=== PATIENT | male | born 1950 | race Caucasian/White ===

== ENCOUNTER 2022-04-26 14:49 | Observation (INO) ==
--- NOTE | 2022-04-26 15:27 | Emergency Department Note ---
Impression & Plan Complicated urinary tract infection, Bilateral chronic intracranial subdural hematoma ED Provider Note HISTORY OF PRESENT ILLNESS: Patient is a 71-year-old male presenting with leg heaviness and a left-sided headache. Patient reports that he woke up this morning and had a fever of 101. He states that his bilateral lower extremities "feel heavy." He denies any recent falls or head injuries. He had a follow-up a month ago and was diagnosed with an intracranial bleed. Patient reports he is on Plavix currently. Denies any chest pain or shortness of breath. He has had a nonproductive cough since waking up this morning. Denies any recent sick contact exposures. Denies any rashes. Denies any abdominal pain or vomiting, but does report some nausea since waking up this morning. He reports he did not take anything for his fever this morning prior to arrival. ROS: as above PHYSICAL EXAM: Constitutional: Patient appears in no acute distress. HENT: Head: Normocephalic and atraumatic. Eyes: EOMI, PERRL Mouth/Throat: Mucous membranes moist. Neck: Trachea midline. Neck supple. Full range of motion of the neck without meningismus. Cardiovascular: RRR, No murmurs, rubs or gallops. Intact distal pulses. Pulmonary/Chest: No respiratory distress. Breath sounds clear and equal bilaterally. No wheezes or rales. Abdominal: BS +. Abdomen soft, no tenderness, rebound or guarding. Back: No midline spinal tenderness, no paraspinal tenderness, no CVA tenderness. Musculoskeletal: No edema, tenderness or deformity noted. Cummins catheter leg bag in place. Skin: Warm and dry. No rash, erythema, pallor or cyanosis Psychiatric: Appropriate mood and affect for situation. Neurological: Alert and keenly responsive. CN II-XII grossly intact, moving all extremities equally and fully. MDM: - Vitals signs stable. - History obtained via patient. Patient presents with leg heaviness and left- sided headache. Patient states he woke up this morning and felt like his bilateral lower extremities were heavy. He denies any fevers. Denies any recent falls or head injuries. Denies any nausea or vomiting. He has a chronic Cummins catheter in place - Chronic conditions affecting care: CAD (S/p CABG); HTN; HLD - Differential diagnoses include, but are not limited to: Intracranial bleed vs mass; stroke; seizures; electrolyte abnormality; medication side effect; UTI; pneumonia - Order placed for continuous cardiac monitoring. At this time, monitor showed rate of 85 bpm with normal sinus rhythm, per my interpretation. - External medical records reviewed. Patient was evaluated after a fall in March 2022 and required transfer given bilateral subdural hematomas. - Laboratory workup interpreted by myself showed leukocytosis (WBC 19.26); normal troponin; slight hypomagnesemia (Mg 1.6); normal procalcitonin - COVID negative - CXR negative for acute cardiopulmonary pathology, per my interpretation. - CT head wo contrast showed bilateral subdural hematomas which have decreased in size from previous imaging. - Blood cultures obtained. - UA obtained from catheter shows evidence of infection. No prior urine cultures in our system. Given 2g IV rocephin. - EKG reviewed by myself showed normal sinus rhythm. Rate 89 bpm. QTc 476. No acute ischemic changes. Appears similar to prior EKGs from March 2022 - Discussion was had with socially responsible investment adviser about patient's case and need for admission - Hospitalist consulted for admission. - Patient admitted to [facility] for further evaluation and management. ASSESSMENT AND PLAN: Diagnosis: lower extremity weakness; complicated UTI; bilateral chronic subdural hematoma Plan: admit Past Med/Surg History Medical History CAD (coronary artery disease) s/p CABG x 3 (2003) GERD (gastroesophageal reflux disease) Hyperlipidemia Hypertension Obesity Ventral hernia without obstruction or gangrene Surgical History H/O ventral hernia repair (03/13/19) Open Ventral Hernia Repair, with Mesh Dr. 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 Beliefs That Will Affect Care: None marital status: Current Living Situation: Alone current occupational status: employed and retired 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 release 24 hr omeprazole 20 mg capsule,delayed 20 mg PO QAM 02/20/19 04/26/22 release atorvastatin 10 mg tablet (Lipitor) 10 mg PO BID 02/21/19 04/26/22 losartan 100 mg tablet 100 mg PO QAM 02/21/19 04/26/22 solifenacin 10 mg tablet 10 mg PO HS 02/21/19 04/26/22 omega 3-wfr-fih-fish oil 1,000 mg 1 cap PO QAM 02/22/19 04/26/22 (120 mg-180 mg) capsule (Fish Oil) ascorbate calcium (vitamin C) 500 500 mg PO DAILY 04/28/21 04/26/22 mg tablet cholecalciferol (vitamin D3) 50 50 mcg PO DAILY 04/28/21 04/26/22 mcg (2,000 unit) capsule multivitamin 1 tab PO QAM 03/19/22 04/26/22 Previous Rx's Medication Instructions Recorded tadalafil 5 mg tablet (Cialis) 5 mg PO DAILY #90 tabs 04/28/21 Results & Data (ED) Vital Signs Vital Signs - 24 hr 04/26/22 14:58 04/26/22 15:24 04/26/22 15:39 Temperature 36.8 C Temperature Source Temporal Artery Scan Pulse Rate 91 H 90 90 Pulse Rate from SpO2 Sensor 90 Pulse Rhythm Regular Respiratory Rate 18 20 24 Respiratory Effort / Characteristics Non-Labored Spontaneous Respiratory Depth Normal Respiratory Pattern Regular Blood Pressure 107/69 Blood Pressure Mean 81 Blood Pressure Position Sitting Pulse Oximetry 93 94 92 Oxygen Delivery Method Room Air Room Air Sepsis Recent Fever Within 48 Hours No Sepsis New/Unexplained Change in Mental Status No Sepsis Action Taken by Nursing No Action Required 04/26/22 16:00 04/26/22 14:50 04/26/22 16:30 Temperature Temperature Source Pulse Rate 91 H Pulse Rate from SpO2 Sensor 91 H Pulse Rhythm Respiratory Rate 20 Respiratory Effort / Characteristics Respiratory Depth Respiratory Pattern Blood Pressure 102/63 112/65 Blood Pressure Mean 76 80 Blood Pressure Position Pulse Oximetry 90 Oxygen Delivery Method Room Air Sepsis Recent Fever Within 48 Hours Sepsis New/Unexplained Change in Mental Status Sepsis Action Taken by Nursing 04/26/22 16:30 04/26/22 17:00 04/26/22 17:00 Temperature Temperature Source Pulse Rate 90 85 Pulse Rate from SpO2 Sensor 89 86 Pulse Rhythm Respiratory Rate 24 25 H Respiratory Effort / Characteristics Respiratory Depth Respiratory Pattern Blood Pressure 110/65 Blood Pressure Mean 80 Blood Pressure Position Pulse Oximetry 91 91 Oxygen Delivery Method Sepsis Recent Fever Within 48 Hours Sepsis New/Unexplained Change in Mental Status Sepsis Action Taken by Nursing 04/26/22 17:30 Temperature Temperature Source Pulse Rate 88 Pulse Rate from SpO2 Sensor 89 Pulse Rhythm Respiratory Rate 22 Respiratory Effort / Characteristics Respiratory Depth Respiratory Pattern Blood Pressure Blood Pressure Mean Blood Pressure Position Pulse Oximetry 91 Oxygen Delivery Method Sepsis Recent Fever Within 48 Hours Sepsis New/Unexplained Change in Mental Status Sepsis Action Taken by Nursing Laboratory Data 04/26/22 15:29 04/26/22 15:29 Lab Results 04/26/22 04/26/22 04/26/22 Range/Units 15:25 15:29 15:29 WBC 19.26 H (4.8-10.8) K/ul RBC 4.20 L (4.70-6.10) M/uL Hgb 12.4 L (14.0-18.0) g/dl Hct 38.0 L (42.0-52.0) % MCV 90.5 (80.0-100.0) fL MCH 29.5 (25.0-34.0) pg MCHC 32.6 (32.0-36.0) g/dL RDW Std Deviation 46.5 H (36.4-46.3) fL RDW Coeff of Judah 14.1 (11.5-14.5) % Plt Count 192 (130-400) K/uL MPV 10.5 (9.4-12.4) fL Immature Gran % (Auto) 0.8 % Neut % (Auto) 85.2 % Lymph % (Auto) 3.3 % Burke % (Auto) 9.8 % Eos % (Auto) 0.7 % Baso % (Auto) 0.2 % Neut # (Auto) 16.41 H (1.40-6.50) K/uL Lymph # (Auto) 0.63 L (1.2-3.4) K/uL Burke # (Auto) 1.88 H (0.11-0.59) K/uL Eos # (Auto) 0.14 (0-0.50) K/uL Baso # (Auto) 0.04 (0-0.2) K/uL Immature Gran # (Auto) 0.16 (0.01-0.20) K/uL Sodium 139 (136-145) mmol/L Potassium 4.5 (3.5-5.1) mmol/L Chloride 103 (98-107) mmol/L Carbon Dioxide 29 (21-32) mmol/L Anion Gap 7 (3-11) BUN 15 (6-23) mg/dl Creatinine 0.92 (0.6-1.4) mg/dl Est Cr Clr Drug Dosing Not Reportable Est GFR ( Amer) 95.3 ml/min Est GFR (Non-Af Amer) 82.2 ml/min BUN/Creatinine Ratio 16.3 (10-20) Glucose 146 H (70-99(Fasting)) mg/dl Calcium 8.9 (8.5-10.1) mg/dl Magnesium 1.6 L (1.7-2.4) mg/dl Total Bilirubin 0.7 (0.2-1.0) mg/dl AST 12 L (13-39) U/L ALT 14 (7-52) U/L Alkaline Phosphatase 65 (34-104) U/L Troponin I High Sens 8.4 (0-20) pg/ml Total Protein 6.9 (6.0-8.3) gm/dl Albumin 3.8 (3.4-5.0) gm/dl Globulin 3.1 (2.5-4.0) gm/dl Albumin/Globulin Ratio 1.2 (0.9-2) Procalcitonin (0-0.5) ng/ml TSH (0.300-4.500) uIu/ml Urine Color Urine Appearance (Clear) Urine pH (4.5-7.5) Ur Specific [place] (1.000-1.030) Urine Protein (Negative) Urine Glucose (UA) (Negative) Urine Ketones (Negative) Urine Blood (Negative) Urine Nitrite (Negative) Urine Bilirubin (Negative) Urine Urobilinogen (Negative) Ur Leukocyte Esterase (Negative) Urine WBC (Auto) (0-5) /hpf Urine RBC (Auto) (0-4) /hpf U Hyaline Cast (Auto) (0-5) /lpf U Epithel Cells (Auto) (0-5) /lpf Urine Bacteria (Auto) (Negative) Adenovirus (PCR) Not Detected (NotDetected) B. pertussis DNA (PCR) Not Detected (NotDetected) B.parapertussis DNA PCR Not Detected (NotDetected) C. pneumoniae DNA (PCR) Not Detected (NotDetected) Coronavirus OC43 (PCR) Not Detected (NotDetected) Coronavirus HKU1 (PCR) Not Detected (NotDetected) Coronavirus 229E (PCR) Not Detected (NotDetected) SARS-CoV-2 (PCR) Not Detected (NotDetected) Coronavirus NL63 (PCR) Not Detected (NotDetected) Human Metapneumovir PCR Not Detected (NotDetected) Influenza Type A (PCR) Not Detected (NotDetected) Influenza Type B (PCR) Not Detected (NotDetected) M. pneumoniae (PCR) Not Detected (NotDetected) Parainfluenza 1 (PCR) Not Detected (NotDetected) Parainfluenza 2 (PCR) Not Detected (NotDetected) Parainfluenza 3 (PCR) Not Detected (NotDetected) Parainfluenza 4 (PCR) Not Detected (NotDetected) RSV (PCR) Not Detected (NotDetected) Entero/Rhino (PCR) Not Detected (NotDetected) 04/26/22 04/26/22 04/26/22 Range/Units 15:29 15:29 17:45 WBC (4.8-10.8) K/ul RBC (4.70-6.10) M/uL Hgb (14.0-18.0) g/dl Hct (42.0-52.0) % MCV (80.0-100.0) fL MCH (25.0-34.0) pg MCHC (32.0-36.0) g/dL RDW Std Deviation (36.4-46.3) fL RDW Coeff of Judah (11.5-14.5) % Plt Count (130-400) K/uL MPV (9.4-12.4) fL Immature Gran % (Auto) % Neut % (Auto) % Lymph % (Auto) % Burke % (Auto) % Eos % (Auto) % Baso % (Auto) % Neut # (Auto) (1.40-6.50) K/uL Lymph # (Auto) (1.2-3.4) K/uL Burke # (Auto) (0.11-0.59) K/uL Eos # (Auto) (0-0.50) K/uL Baso # (Auto) (0-0.2) K/uL Immature Gran # (Auto) (0.01-0.20) K/uL Sodium (136-145) mmol/L Potassium (3.5-5.1) mmol/L Chloride (98-107) mmol/L Carbon Dioxide (21-32) mmol/L Anion Gap (3-11) BUN (6-23) mg/dl Creatinine (0.6-1.4) mg/dl Est Cr Clr Drug Dosing Est GFR ( Amer) ml/min Est GFR (Non-Af Amer) ml/min BUN/Creatinine Ratio (10-20) Glucose (70-99(Fasting)) mg/dl Calcium (8.5-10.1) mg/dl Magnesium (1.7-2.4) mg/dl Total Bilirubin (0.2-1.0) mg/dl AST (13-39) U/L ALT (7-52) U/L Alkaline Phosphatase (34-104) U/L Troponin I High Sens (0-20) pg/ml Total Protein (6.0-8.3) gm/dl Albumin (3.4-5.0) gm/dl Globulin (2.5-4.0) gm/dl Albumin/Globulin Ratio (0.9-2) Procalcitonin 0.36 (0-0.5) ng/ml TSH 0.523 (0.300-4.500) uIu/ml Urine Color Dark Yellow Urine Appearance Turbid A (Clear) Urine pH 7.0 (4.5-7.5) Ur Specific [place] 1.022 (1.000-1.030) Urine Protein 1+ H (Negative) Urine Glucose (UA) Negative (Negative) Urine Ketones Trace H (Negative) Urine Blood 2+ H (Negative) Urine Nitrite Positive A (Negative) Urine Bilirubin Negative (Negative) Urine Urobilinogen Negative (Negative) Ur Leukocyte Esterase 3+ H (Negative) Urine WBC (Auto) >30 H (0-5) /hpf Urine RBC (Auto) 10-30 H (0-4) /hpf U Hyaline Cast (Auto) 5-10 H (0-5) /lpf U Epithel Cells (Auto) 5-10 H (0-5) /lpf Urine Bacteria (Auto) 4+ H (Negative) Adenovirus (PCR) (NotDetected) B. pertussis DNA (PCR) (NotDetected) B.parapertussis DNA PCR (NotDetected) C. pneumoniae DNA (PCR) (NotDetected) Coronavirus OC43 (PCR) (NotDetected) Coronavirus HKU1 (PCR) (NotDetected) Coronavirus 229E (PCR) (NotDetected) SARS-CoV-2 (PCR) (NotDetected) Coronavirus NL63 (PCR) (NotDetected) Human Metapneumovir PCR (NotDetected) Influenza Type A (PCR) (NotDetected) Influenza Type B (PCR) (NotDetected) M. pneumoniae (PCR) (NotDetected) Parainfluenza 1 (PCR) (NotDetected) Parainfluenza 2 (PCR) (NotDetected) Parainfluenza 3 (PCR) (NotDetected) Parainfluenza 4 (PCR) (NotDetected) RSV (PCR) (NotDetected) Entero/Rhino (PCR) (NotDetected) Administered Medications Discontinued Medications Ceftriaxone Sodium (Rocephin) 2,000 mg in 70 mls @ 140 mls/hr IV NOW STA Stop: 04/26/22 19:03 Last Admin: 04/26/22 19:18 Dose: 140 mls/hr Documented By: RDD Imaging Data Radiologist's Impression: Chest X-Ray 04/26/22 15:24 XR chest 1V portable CLINICAL HISTORY: weakness COMPARISON STUDY: Chest radiograph March 19, 2022. FINDINGS: No pneumothorax is noted. Blunting of the left costophrenic angle is likely chronic. Mild asymmetric left lung volume loss is unchanged. This may be postsurgical. There are median sternotomy wires and mediastinal surgical clips. Cardiomegaly is noted. No evidence for pulmonary edema. No definite consolidation. Hazy left basilar opacity is likely artifactual. IMPRESSION: No acute cardiopulmonary findings. No change in appearance of the chest. ACT 112: Negative or not required by law. Electronically signed by: Deven Cuellar M.D. 04/26/2022 4:[address] 04/26/22 15:24 CT OF THE HEAD WITHOUT CONTRAST CLINICAL HISTORY: weakness COMPARISON STUDY: Head CT and CTA of the head March 19, 2022. CT DOSE: 614.27 mGy.cm TECHNIQUE: Helical axial images of the head were obtained without IV contrast. Automated exposure control was utilized for the study. A dose lowering technique was utilized adhering to the principles of ALARA. FINDINGS: Moderate-sized left and small right-sided mixed attenuation subdural hematomas are noted. These have decreased in size and attenuation when compared to prior head CT of March 19, 2022 following interval bilateral craniotomies. The left subdural hematoma measures 1.7 cm in thickness. The right sided hem atoma measures 1.2 cm. Mass effect has diminished. There is mild residual sulcal effacement. There is no significant midline shift. Compression of the left lateral ventricle has diminished. The basal cisterns are patent. There is no evidence for herniation at this time. No findings to suggest acute dural sinus thrombosis or acute territorial infarct. Surgical material along the inner table of the right calvarium is noted. No acute calvarial fracture is present. IMPRESSION: Bilateral mixed attenuation subdural hematomas, decreased in size since head CT of March 19, 2022 following interval craniotomies. Left subdural hematoma moderate in size. Right hematoma small in size. Correlation with prior postoperative imaging studies would be beneficial. These may reflect recurrent acute on chronic or subacute subdural hematomas. Short-term imaging follow-up is recommended with follow-up head CT in 12 hours to ensure stability. If progressive symptoms, neurosurgical consultation is recommended. ACT 112: Negative or not required by law. Electronically signed by: Deven Cuellar M.D. 04/26/2022 4:20 PM Discharge Plan Visit Data Chief Complaint: Weakness Stated Complaint: WEAKNESS, DIZZINESS S/P BRAIN BLEED IN MARCH ED Provider: Miriam Mckoy Discharge Problem: Complicated urinary tract infection, Bilateral chronic intracranial subdural hematoma Forms Stand Alone Forms: My [facility] [employer] Prescriptions Prescriptions: No Action amlodipine [Norvasc] 5 mg tablet 5 mg PO QAM aspirin [Adult Aspirin Regimen] 81 mg tablet,delayed release (DR/EC) 81 mg PO QAM metoprolol succinate 50 mg capsule,sprinkle,ER 24hr 50 mg PO QAM omeprazole 20 mg capsule,delayed release(DR/EC) 20 mg PO QAM atorvastatin [Lipitor] 10 mg tablet 10 mg PO BID losartan 100 mg tablet 100 mg PO QAM solifenacin 10 mg tablet 10 mg PO HS ascorbate calcium (vitamin C) 500 mg tablet 500 mg PO DAILY cholecalciferol (vitamin D3) 50 mcg (2,000 unit) capsule 50 mcg PO DAILY tadalafil [Cialis] 5 mg tablet 5 mg PO DAILY Qty: 90 3RF omega 5-dni-gwn-fish oil [Fish Oil] 1,000 mg (120 mg-180 mg) Capsule 1 cap PO QAM multivitamin Tablet 1 tab PO QAM Referrals Referrals: Davie Robertson DO [Primary Care Provider] -
[2022-04-26 15:45] LABS: Basophils # (auto) 0.04 K/uL (0-0.2); Basophils % (auto) 0.2 %; Eosinophils # (auto) 0.14 K/uL (0-0.50); Eosinophils % (auto) 0.7 %; Hemoglobin 12.4 g/dl (14.0-18.0); Immature Granulocytes # (auto) 0.16 K/uL (0.01-0.20); Immature Granulocytes % (auto) 0.8 %; Lymphocytes # (auto) 0.63 K/uL (1.2-3.4); Lymphocytes % (auto) 3.3 %; Mean Corpuscular Hemoglobin 29.5 pg (25.0-34.0); Mean Corpuscular Hgb Conc 32.6 g/dL (32.0-36.0); Mean Corpuscular Volume 90.5 fL (80.0-100.0); Mean Platelet Volume 10.5 fL (9.4-12.4); Monocytes # (auto) 1.88 K/uL (0.11-0.59); Monocytes % (auto) 9.8 %; Neutrophils # (auto) 16.41 K/uL (1.40-6.50); Neutrophils % (auto) 85.2 %; Platelet Count 192 K/uL (130-400); RDW Coefficient of Variation 14.1 % (11.5-14.5); RDW Standard Deviation 46.5 fL (36.4-46.3); White Blood Count 19.26 K/ul (4.8-10.8)
--- NOTE | 2022-04-26 16:02 | XRay Report ---
XR chest 1V portable CLINICAL HISTORY: weakness COMPARISON STUDY: Chest radiograph March 19, 2022. FINDINGS: No pneumothorax is noted. Blunting of the left costophrenic angle is likely chronic. Mild a symmetric left lung volume loss is unchanged. This may be postsurgical. There are median sternotomy w ires and mediastinal surgical clips. Cardiomegaly is noted. No evidence for pulmonary edema. No defin ite consolidation. Hazy left basilar opacity is likely artifactual. IMPRESSION: No acute cardiopulmonary findings. No change in appearance of the chest. ACT 112: Negative or not required by law. Electronically signed by: Deven Cuellar M.D. 04/26/2022 4:00 PM
[2022-04-26 16:03] LABS: Alanine Aminotransferase 14 U/L (7-52); Albumin Globulin Ratio 1.2 (0.9-2); Albumin Level 3.8 gm/dl (3.4-5.0); Alkaline Phosphatase 65 U/L (34-104); Anion Gap 7 (3-11); Aspartate Aminotransferase 12 U/L (13-39); BUN Creatinine Ratio 16.3 (10-20); Bilirubin,Total 0.7 mg/dl (0.2-1.0); Blood Urea Nitrogen 15 mg/dl (6-23); Calcium 8.9 mg/dl (8.5-10.1); Carbon Dioxide 29 mmol/L (21-32); Chloride 103 mmol/L (98-107); Est GFR (African American) 95.3 ml/min; Est GFR (Non-African American) 82.2 ml/min; Globulin 3.1 gm/dl (2.5-4.0); Glucose 146 mg/dl (70-99(Fasting)); Magnesium 1.6 mg/dl (1.7-2.4); Potassium 4.5 mmol/L (3.5-5.1); Sodium 139 mmol/L (136-145); Total Protein 6.9 gm/dl (6.0-8.3)
[2022-04-26 16:09] LABS: Troponin I High Sensitivity 8.4 pg/ml (0-20)
--- NOTE | 2022-04-26 16:23 | CT Scan Report ---
CT OF THE HEAD WITHOUT CONTRAST CLINICAL HISTORY: weakness COMPARISON STUDY: Head CT and CTA of the head March 19, 2022. CT DOSE: 614.27 mGy.cm TECHNIQUE: Helical axial images of the head were obtained without IV contrast. Automated exposure con trol was utilized for the study. A dose lowering technique was utilized adhering to the principles o f ALARA. FINDINGS: Moderate-sized left and small right-sided mixed attenuation subdural hematomas are noted. T hese have decreased in size and attenuation when compared to prior head CT of March 19, 2022 followi ng interval bilateral craniotomies. The left subdural hematoma measures 1.7 cm in thickness. The righ t sided hematoma measures 1.2 cm. Mass effect has diminished. There is mild residual sulcal effacemen t. There is no significant midline shift. Compression of the left lateral ventricle has diminished. T he basal cisterns are patent. There is no evidence for herniation at this time. No findings to sugges t acute dural sinus thrombosis or acute territorial infarct. Surgical material along the inner table of the right calvarium is noted. No acute calvarial fracture is present. IMPRESSION: Bilateral mixed attenuation subdural hematomas, decreased in size since head CT of March 19, 2022 fo llowing interval craniotomies. Left subdural hematoma moderate in size. Right hematoma small in size. Correlation with prior postoperative imaging studies would be beneficial. These may reflect recurren t acute on chronic or subacute subdural hematomas. Short-term imaging follow-up is recommended with f ollow-up head CT in 12 hours to ensure stability. If progressive symptoms, neurosurgical consultation is recommended. ACT 112: Negative or not required by law. Electronically signed by: Deven Cuellar M.D. 04/26/2022 4:20 PM
[2022-04-26 16:33] LABS: Adenovirus PCR Not Detected (NotDetected); Bordetella parapertussis PCR Not Detected (NotDetected); Bordetella pertussis PCR Not Detected (NotDetected); Chlamydia pneumoniae PCR Not Detected (NotDetected); Coronavirus 229E PCR Not Detected (NotDetected); Coronavirus CoV-2 (COVID19)PCR Not Detected (NotDetected); Coronavirus HKU1 PCR Not Detected (NotDetected); Coronavirus NL63 PCR Not Detected (NotDetected); Coronavirus OC43PCR Not Detected (NotDetected); Human Metapneumovirus PCR Not Detected (NotDetected); Influenza A PCR Not Detected (NotDetected); Influenza B PCR Not Detected (NotDetected); Mycoplasma pneumoniae PCR Not Detected (NotDetected); Parainfluenza Virus 1 PCR Not Detected (NotDetected); Parainfluenza Virus 2 PCR Not Detected (NotDetected); Parainfluenza Virus 3 PCR Not Detected (NotDetected); Parainfluenza Virus 4 PCR Not Detected (NotDetected); Respiratory Syncytial VirusPCR Not Detected (NotDetected); Rhinovirus/Enterovirus PCR Not Detected (NotDetected)
[2022-04-26 18:11] LABS: Appearance Urine Turbid (Clear); Bacteria Urine Automated 4+ (Negative); Bilirubin Urine Negative (Negative); Blood Urine 2+ (Negative); Color Urine Dark Yellow; Glucose Urine UA Negative (Negative); Ketones Urine Trace (Negative); Leukocyte Esterase Urine 3+ (Negative); Nitrite Urine Positive (Negative); Protein Urine 1+ (Negative); Specific Gravity Urine 1.022 (1.000-1.030); Urobilinogen Urine Negative (Negative); WBC Urine Automated >30 /hpf (0-5)
[2022-04-26] MEDS ORDERED: cefTRIAXone SODIUM 2,000 MG/70 ML BAG IV STA (18:34)
--- NOTE | 2022-04-26 18:49 | History & Physical Report ---
Date of Service April 26, 2022 History of Present Illness Chief Complaint: Weakness Primary Care Provider: Davie RobertsonDO Burnette is a 71 year old male with a PMH significant for BL subdural hematomas due to falls diagnosed at [facility] on 03/19/22 S/P anterior and posterior bore hole placement at [facility] on 03/20/22, S/P IR embolization of the right middle meningeal artery at [facility] 03/24/22, HTN, CAD S/P CABG x 3 approximately 18 yrs ago, and acute urinary retention currently delcid catheter dependent who presented to the [facility] ED on 04/26/22 with a chief complaint of weakness. In the ED the patient was found to be afebrile, hemodynamically stable, and stable on RA. Labs were remarkable for a leukocytosis of 19 with left shift of 16, Hgb of 12.4 (down from 14 as of 03/19/22), stable platelets at 192, stable cr at 0.92, glucose of 146, ,mag of 1.6 otherwise stable electrolytes, initial high sensitivity trop of 8.6, procal of 0.36, TSH WNL, UA indicative of infection b eing nitrite positive, 3+ leukocyte esterase, >30 WBC, and 4+ bacteria, and full respiratory biofire negative. Chest xray was read as "No acute cardiopulmonary findings. No change in appearance of the chest.". CT of the head was read as "Bilateral mixed attenuation subdural hematomas, decreased in size since head CT of March 19, 2022 following interval craniotomies. Left subdural hematoma moderate in size. Right hematoma small in size. Correlation with prior postoperative imaging studies would be beneficial. These may reflect recurrent acute on chronic or subacute subdural hematomas. Short-term imaging follow-up is recommended with follow-up head CT in 12 hours to ensure stability. If progressive symptoms, neurosurgical consultation is recommended." Prior to admission the patient was given 2g IV ceftriaxone. Allergies Allergy/AdvReac Type Severity Reaction Status Date / Time No Known Allergies Allergy Verified 04/26/22 17:05 Home Medications Medication Instructions Recorded Confirmed Type amlodipine 5 mg tablet (Norvasc) 5 mg PO QAM 02/20/19 04/26/22 History aspirin 81 mg tablet,delayed 81 mg PO QAM 02/20/19 04/26/22 History release (Adult Aspirin Regimen) metoprolol succinate 50 mg capsule 50 mg PO QAM 02/20/19 04/26/22 History sprinkle, ext. release 24 hr omeprazole 20 mg capsule,delayed 20 mg PO QAM 02/20/19 04/26/22 History release atorvastatin 10 mg tablet (Lipitor) 10 mg PO BID 02/21/19 04/26/22 History losartan 100 mg tablet 100 mg PO QAM 02/21/19 04/26/22 History solifenacin 10 mg tablet 10 mg PO HS 02/21/19 04/26/22 History omega 6-epo-kms-fish oil 1,000 mg 1 cap PO QAM 02/22/19 04/26/22 History (120 mg-180 mg) capsule (Fish Oil) ascorbate calcium (vitamin C) 500 500 mg PO DAILY 04/28/21 04/26/22 History mg tablet cholecalciferol (vitamin D3) 50 50 mcg PO DAILY 04/28/21 04/26/22 History mcg (2,000 unit) capsule tadalafil 5 mg tablet (Cialis) 5 mg PO DAILY #90 tabs 04/28/21 04/26/22 Rx multivitamin 1 tab PO QAM 03/19/22 04/26/22 History Past Med/Surg History Medical History CAD (coronary artery disease) s/p CABG x 3 (2003) GERD (gastroesophageal reflux disease) Hyperlipidemia Hypertension Obesity Ventral hernia without obstruction or gangrene Surgical History H/O ventral hernia repair (03/13/19) Open Ventral Hernia Repair, with Mesh Dr. Vargas 03-13-19 H/O wisdom tooth extraction History of colonoscopy Hx of hernia repair as child S/P CABG (coronary artery bypass graft) CABG x 3 (2003) Family History Mother Diabetes Heart disease Father Kidney stones Social History Smoking Status: Former smoker Age Quit Using Tobacco: 23; Second Hand Exposure: No; Hx Alcohol Use: Yes Alcohol type: beer Hx Substance Use: No Preferred Language: [place] Communication Ability: Effective Grounds Restoration Specialist Required: No Beliefs That Will Affect Care: None marital status: Current Living Situation: Alone current occupational status: employed and retired 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 Feels Safe at Home: Yes Assistive Devices: None Results & Data Results & Data ([facility]) Vital Signs (Past 12 Hours) Vital Signs Temp Pulse Resp BP Pulse Ox O2 Del Method 04/26/22 17:30 88 22 91 04/26/22 17:00 85 25 H 91 04/26/22 17:00 110/65 04/26/22 16:30 90 24 91 04/26/22 16:30 112/65 04/26/22 14:50 Room Air 04/26/22 16:00 91 H 20 102/63 90 04/26/22 15:39 90 24 92 04/26/22 15:24 90 20 94 Room Air 04/26/22 14:58 36.8 C 91 H 18 107/69 93 Room Air PG Care Time/CCT Total # of Minutes Spent Total Time Spent with Patient: Total time spent is greater than 50% in coordination of care (as documented) at patient's floor/unit and/or counseling patient: Coding
[2022-04-26] MEDS ORDERED: MAGNESIUM SULFATE / D5W 1 GM/100 ML BAG IV ONE (19:32)
[2022-04-26] MEDS ORDERED: SODIUM CHLORIDE 0.9% 1000ML 1,000 ML IV ONE (19:33)
--- NOTE | 2022-04-26 20:18 | History & Physical Report ---
Date of Service April 26, 2022 Assessment & Plan (1) Sepsis: Plan: Secondary to complicated UTI History chronic indwelling Cummins catheter secondary to urinary retention/BPH since [facility] confinement last month/failed multiple void trials hx CAD status post CABG hypertension, BP on the lower side hyperlipidemia on statin Rx history traumatic bilateral subdural hematoma status post surgery/embolization ([facility], 03/2022) chronic anemia, new patient baseline Hyperglycemia rule out DM past tobacco abuse GMF CS, Ceftriaxone IVF Urology consult Re: Urinary retention with chronic indwelling Cummins catheter, failed multiple void trials (Patient known to [facility].) Check hemoglobin A1c DVT prophylaxis. SCDs Re: Recent subdural hematoma Full code Text document was generated using [employer] voice recognition software. It may contain grammatical or spelling errors. Kindly contact undersigned for clarification of any documentation item in question. History of Present Illness Chief Complaint: Fever, not feeling well, weakness Primary Care Provider: Davie Robertson DO, [facility] in the [place] History obtained from patient, family, and records. Medical history significant for CAD status post CABG, hypertension, hyperlipidemia, history traumatic bilateral subdural hematoma status post surgery/embolization ([facility], 03/2022), chronic anemia (baseline hemoglobin of 12 ), urinary retention secondary to BPH with indwelling Cummins catheter (since 03/2022 [facility] confinement), past tobacco abuse. Last confinement [facility] March 19 to 2022 following [facility] transfer for bilateral subdural hematomas with shift following history of recurrent falls. Patient underwent for holding and embolization. Patient subsequently discharged to [facility] rehab facility. Patient subsequently discharged home weeks ago. Cummins catheter placed during [facility] confinement with failed void trials at [facility] and [facility] rehab facility as per records. Patient discharged home indwelling Cummins catheter with instructions to follow-up with local urologist. Patient woke up not feeling well this morning. Fever of 101. Generalized weakness with transient left-sided headache symptoms. No chest pain, no SOB. Nonproductive cough symptoms. No abdominal pain, no diarrhea, no dysuria complaints. Patient brought to ER for evaluation. IV ceftriaxone administered at the ER for UTI. Medical History as above Surgical History : CABG, ventral hernia repair, dental surgery, james holing Family History : DM, heart disease Personal/Social history : Past tobacco abuse, occasional EtOH intake, lives with Allergies Allergy/AdvReac Type Severity Reaction Status Date / Time No Known Allergies Allergy Verified 04/26/22 17:05 Home Medications Medication Instructions Recorded Confirmed Type amlodipine 5 mg tablet (Norvasc) 5 mg PO QAM 02/20/19 04/26/22 History aspirin 81 mg tablet,delayed 81 mg PO QAM 02/20/19 04/26/22 History release (Adult Aspirin Regimen) metoprolol succinate 50 mg capsule 50 mg PO QAM 02/20/19 04/26/22 History sprinkle, ext. release 24 hr omeprazole 20 mg capsule,delayed 20 mg PO QAM 02/20/19 04/26/22 History release atorvastatin 10 mg tablet (Lipitor) 10 mg PO BID 02/21/19 04/26/22 History losartan 100 mg tablet 100 mg PO QAM 02/21/19 04/26/22 History solifenacin 10 mg tablet 10 mg PO HS 02/21/19 04/26/22 History omega 4-xso-eag-fish oil 1,000 mg 1 cap PO QAM 02/22/19 04/26/22 History (120 mg-180 mg) capsule (Fish Oil) ascorbate calcium (vitamin C) 500 500 mg PO DAILY 04/28/21 04/26/22 History mg tablet cholecalciferol (vitamin D3) 50 50 mcg PO DAILY 04/28/21 04/26/22 History mcg (2,000 unit) capsule tadalafil 5 mg tablet (Cialis) 5 mg PO DAILY #90 tabs 04/28/21 04/26/22 Rx multivitamin 1 tab PO QAM 03/19/22 04/26/22 History Past Med/Surg History Medical History CAD (coronary artery disease) s/p CABG x 3 (2003) GERD (gastroesophageal reflux disease) Hyperlipidemia Hypertension Obesity Ventral hernia without obstruction or gangrene Surgical History H/O ventral hernia repair (03/13/19) Open Ventral Hernia Repair, with Mesh Dr. Vargas 03-13-19 H/O wisdom tooth extraction History of colonoscopy Hx of hernia repair as child S/P CABG (coronary artery bypass graft) CABG x 3 (2003) Family History Mother Diabetes Heart disease Father Kidney stones Social History Smoking Status: Never smoker Age Quit Using Tobacco: 23; Second Hand Exposure: No; Hx Alcohol Use: Yes Alcohol type: beer Hx Substance Use: No Preferred Language: Tunisian Communication Ability: Effective Rental Manager Required: No Beliefs That Will Affect Care: None marital status: Current Living Situation: Alone current occupational status: employed and retired 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 Other Information That Helps Us Care for You: No Feels Safe at Home: Yes Safety Concerns: Feels Safe At This Time Assistive Devices: Walker Review of Systems Review of Systems: As per HPI, all other systems reviewed and negative Physical Exam Physical Exam: GENERAL: Comfortable, pleasant, obese, no respiratory distress SKIN: Normal color, warm HEENT: Partial alopecia, pink palpebral conjunctivae, no ptosis, dry buccal mucosa NECK : Supple, no tenderness CHEST : CTA, no tenderness HEART : RRR, no obvious murmurs ABDOMEN: Some distention, nontender EXTREMITIES : Minimal RLE swelling (chronic as per patient ), no LE swelling/tenderness, no other conspicuous deformities noted NEUROLOGIC : Coherent, no facial asymmetry, gait and stance not assessed Results & Data Results & Data ([facility]) Vital Signs (Past 12 Hours) Vital Signs Temp Pulse Resp BP Pulse Ox O2 Del Method 04/26/22 17:30 88 22 91 04/26/22 17:00 85 25 H 91 04/26/22 17:00 110/65 04/26/22 16:30 90 24 91 04/26/22 16:30 112/65 04/26/22 14:50 Room Air 04/26/22 16:00 91 H 20 102/63 90 04/26/22 15:39 90 24 92 04/26/22 15:24 90 20 94 Room Air 04/26/22 14:58 36.8 C 91 H 18 107/69 93 Room Air Laboratory Results Laboratory Results WBC 19.26 K/ul (4.8-10.8) H 04/26/22 15:29 RBC 4.20 M/uL (4.70-6.10) L 04/26/22 15:29 Hgb 12.4 g/dl (14.0-18.0) L 04/26/22: Hct 38.0 % (42.0-52.0) L 04/26/22: MCV 90.5 fL (80.0-100.0) 04/26/22: MCH 29.5 pg (25.0-34.0) 04/26/22: MCHC 32.6 g/dL (32.0-36.0) 04/26/22: RDW Std Deviation 46.5 fL (36.4-46.3) H 04/26/22: RDW Coeff of Judah 14.1 % (11.5-14.5) 04/26/22 Plt Count 192 K/uL (130-400) 04/26/22 MPV 10.5 fL (9.4-12.4) 04/26/22: Immature Gran % (Auto) 0.8 % 04/26/22: Neut % (Auto) 85.2 % 04/26/22: Lymph % (Auto) 3.3 % 04/26/22: Gregg % (Auto) 9.8 % 04/26/22: Eos % (Auto) 0.7 % 04/26/22: Baso % (Auto) 0.2 % 04/26/22 Neut # (Auto) 16.41 K/uL (1.40-6.50) H 04/26/22: Lymph # (Auto) 0.63 K/uL (1.2-3.4) L 04/26/22: Gregg # (Auto) 1.88 K/uL (0.11-0.59) H 04/26/22: Eos # (Auto) 0.14 K/uL (0-0.50) 04/26/22: Baso # (Auto) 0.04 K/uL (0-0.2) 04/26/22: Immature Gran # (Auto) 0.16 K/uL (0.01-0.20) 04/26/22 15: Sodium 139 mmol/L (136-145) 04/26/22: Potassium 4.5 mmol/L (3.5-5.1) 04/26/22 15:29 Chloride 103 mmol/L (98-107) 04/26/22 15:29 Carbon Dioxide 29 mmol/L (21-32) 04/26/22 15:29 Anion Gap 7 (3-11) 04/26/22 15:29 BUN 15 mg/dl (6-23) 04/26/22 15: Creatinine 0.92 mg/dl (0.6-1.4) 04/26/22 15: Est Cr Clr Drug Dosing Not Reportable 04/26/22 15:29 Est GFR ( Amer) 95.3 ml/min 04/26/22 15: Est GFR (Non-Af Amer) 82.2 ml/min 04/26/22 15: BUN/Creatinine Ratio 16.3 (10-20) 04/26/22 15: Glucose 146 mg/dl (70-99(Fasting)) H 04/26/22 15: Calcium 8.9 mg/dl (8.5-10.1) 04/26/22 15: Magnesium 1.6 mg/dl (1.7-2.4) L 04/26/22 15: Total Bilirubin 0.7 mg/dl (0.2-1.0) 04/26/22 15: AST 12 U/L (13-39) L 04/26/22 15: ALT 14 U/L (7-52) 04/26/22 15:29 Alkaline Phosphatase 65 U/L (34-104) 04/26/22 15: Troponin I High Sens 8.4 pg/ml (0-20) 04/26/22 15: Total Protein 6.9 gm/dl (6.0-8.3) 04/26/22 15: Albumin 3.8 gm/dl (3.4-5.0) 04/26/22 15: Globulin 3.1 gm/dl (2.5-4.0) 04/26/22 15: Albumin/Globulin Ratio 1.2 (0.9-2) 04/26/22 15:29 Procalcitonin 0.36 ng/ml (0-0.5) 04/26/22 15: TSH 0.523 uIu/ml (0.300-4.500) 04/26/22 15:29 Urine Color Dark Yellow 04/26/22 17:45 Urine Appearance Turbid (Clear) A 04/26/22 17:45 Urine pH 7.0 (4.5-7.5) 04/26/22 17:45 Ur Specific [place] 1.022 (1.000-1.030) 04/26/22 17:45 Urine Protein 1+ (Negative) H 04/26/22 17:45 Urine Glucose (UA) Negative (Negative) 04/26/22 17:45 Urine Ketones Trace (Negative) H 04/26/22 17:45 Urine Blood 2+ (Negative) H 04/26/22 17:45 Urine Nitrite Positive (Negative) A 04/26/22 17:45 Urine Bilirubin Negative (Negative) 04/26/22 17:45 Urine Urobilinogen Negative (Negative) 04/26/22 17:45 Ur Leukocyte Esterase 3+ (Negative) H 04/26/22 17:45 Urine WBC (Auto) >30 /hpf (0-5) H 04/26/22 17:45 Urine RBC (Auto) 10-30 /hpf (0-4) H 04/26/22 17:45 U Hyaline Cast (Auto) 5-10 /lpf (0-5) H 04/26/22 17:45 U Epithel Cells (Auto) 5-10 /lpf (0-5) H 04/26/22 17:45 Urine Bacteria (Auto) 4+ (Negative) H 04/26/22 17:45 Adenovirus (PCR) Not Detected (NotDetected) 04/26/22 15:25 B. pertussis DNA (PCR) Not Detected (NotDetected) 04/26/22 15:25 B.parapertussis DNA PCR Not Detected (NotDetected) 04/26/22 15:25 C. pneumoniae DNA (PCR) Not Detected (NotDetected) 04/26/22 15:25 Coronavirus OC43 (PCR) Not Detected (NotDetected) 04/26/22 15:25 Coronavirus HKU1 (PCR) Not Detected (NotDetected) 04/26/22 15:25 Coronavirus 229E (PCR) Not Detected (NotDetected) 04/26/22 15:25 SARS-CoV-2 (PCR) Not Detected (NotDetected) 04/26/22 15:25 Coronavirus NL63 (PCR) Not Detected (NotDetected) 04/26/22 15:25 Human Metapneumovir PCR Not Detected (NotDetected) 04/26/22 15:25 Influenza Type A (PCR) Not Detected (NotDetected) 04/26/22 15:25 Influenza Type B (PCR) Not Detected (NotDetected) 04/26/22 15:25 M. pneumoniae (PCR) Not Detected (NotDetected) 04/26/22 15:25 Parainfluenza 1 (PCR) Not Detected (NotDetected) 04/26/22 15:25 Parainfluenza 2 (PCR) Not Detected (NotDetected) 04/26/22 15:25 Parainfluenza 3 (PCR) Not Detected (NotDetected) 04/26/22 15:25 Parainfluenza 4 (PCR) Not Detected (NotDetected) 04/26/22 15:25 RSV (PCR) Not Detected (NotDetected) 04/26/22 15:25 Entero/Rhino (PCR) Not Detected (NotDetected) 04/26/22 15:25 Impressions Chest X-Ray 04/26/22 15:24 XR chest 1V portable CLINICAL HISTORY: weakness COMPARISON STUDY: Chest radiograph March 19, 2022. FINDINGS: No pneumothorax is noted. Blunting of the left costophrenic angle is likely chronic. Mild asymmetric left lung volume loss is unchanged. This may be postsurgical. There are median sternotomy wires and mediastinal surgical clips. Cardiomegaly is noted. No evidence for pulmonary edema. No definite consolidation. Hazy left basilar opacity is likely artifactual. IMPRESSION: No acute cardiopulmonary findings. No change in appearance of the chest. ACT 112: Negative or not required by law. Electronically signed by: Deven Cuellar M.D. 04/26/2022 4:[address] 04/26/22 15:24 CT OF THE HEAD WITHOUT CONTRAST CLINICAL HISTORY: weakness COMPARISON STUDY: Head CT and CTA of the head March 19, 2022. CT DOSE: 614.27 mGy.cm TECHNIQUE: Helical axial images of the head were obtained without IV contrast. Automated exposure control was utilized for the study. A dose lowering technique was utilized adhering to the principles of ALARA. FINDINGS: Moderate-sized left and small right-sided mixed attenuation subdural hematomas are noted. These have decreased in size and attenuation when compared to prior head CT of March 19, 2022 following interval bilateral craniotomies. The left subdural hematoma measures 1.7 cm in thickness. The right sided hematoma measures 1.2 cm. Mass effect has diminished. There is mild residual sulcal effacement. There is no significant midline shift. Compression of the left lateral ventricle has diminished. The basal cisterns are patent. There is no evidence for herniation at this time. No findings to suggest acute dural sinus thrombosis or acute territorial infarct. Surgical material along the inner table of the right calvarium is noted. No acute calvarial fracture is present. IMPRESSION: Bilateral mixed attenuation subdural hematomas, decreased in size since head CT of March 19, 2022 following interval craniotomies. Left subdural hematoma moderate in size. Right hematoma small in size. Correlation with prior postoperative imaging studies would be beneficial. These may reflect recurrent acute on chronic or subacute subdural hematomas. Short-term imaging follow-up is recommended with follow-up head CT in 12 hours to ensure stability. If progressive symptoms, neurosurgical consultation is recommended. ACT 112: Negative or not required by law. Electronically signed by: Deven Cuellar M.D. 04/26/2022 4:20 PM Diagnostic Findings EKG as per my interpretation : Rate 90, NSR, normal axis, T wave abnormalities inferior leads
[2022-04-26] MEDS ORDERED: oxyCODONE HCL IR 5 MG TAB (IMMEDIATE RELEASE) PO PRN (21:52)
[2022-04-26] MEDS ORDERED: PROMETHAZINE HCL 12.5 MG in SODIUM CHLORIDE 0.9% 50 ML IV PRN (21:52)
[2022-04-26] MEDS ORDERED: ACETAMINOPHEN 325 MG TAB PO PRN (21:52)
[2022-04-26] MEDS: ATORVASTATIN 10 MG TAB PO SCH (22:52)
[2022-04-26] MEDS: VESICARE~ORDER AWAITING ACTION SCH ×2 (22:53→23:00)
[2022-04-27 06:05] LABS: Basophils # (auto) 0.02 K/uL (0-0.2); Basophils % (auto) 0.1 %; Hematocrit (blood only) 34.2 % (42.0-52.0); Hemoglobin 11.5 g/dl (14.0-18.0); Immature Granulocytes # (auto) 0.12 K/uL (0.01-0.20); Immature Granulocytes % (auto) 0.7 %; Lymphocytes # (auto) 1.22 K/uL (1.2-3.4); Mean Corpuscular Hemoglobin 29.9 pg (25.0-34.0); Mean Corpuscular Hgb Conc 33.6 g/dL (32.0-36.0); Mean Corpuscular Volume 89.1 fL (80.0-100.0); Mean Platelet Volume 10.8 fL (9.4-12.4); Monocytes # (auto) 1.69 K/uL (0.11-0.59); Monocytes % (auto) 9.6 %; Neutrophils # (auto) 14.47 K/uL (1.40-6.50); Neutrophils % (auto) 82.6 %; Platelet Count 172 K/uL (130-400); RDW Coefficient of Variation 14.5 % (11.5-14.5); RDW Standard Deviation 46.5 fL (36.4-46.3); Red Blood Count 3.84 M/uL (4.70-6.10); White Blood Count 17.52 K/ul (4.8-10.8)
[2022-04-27 06:19] LABS: BUN Creatinine Ratio 18.3 (10-20); Calcium 8.1 mg/dl (8.5-10.1); Creatinine Clr Calc Pharmacy 98.3 ml/min; Est GFR (African American) 101.7 ml/min; Est GFR (Non-African American) 87.7 ml/min; Magnesium 1.9 mg/dl (1.7-2.4); Potassium 3.8 mmol/L (3.5-5.1)
[2022-04-27 07:35] LABS: Estimated Average Glucose 140 mg/dl; Hemoglobin A1C 6.5 % (4.5-5.6)
[2022-04-27] MEDS: CHOLECALCIFEROL 1,000 UNITS 25 MCG TAB PO SCH (08:16)
[2022-04-27] MEDS: MULTIVITAMIN TAB PO SCH (08:16)
[2022-04-27] MEDS: PANTOprazole 40 MG TAB PO SCH (08:16)
[2022-04-27] MEDS: ASPIRIN 81 MG ECTAB PO SCH (08:16)
[2022-04-27] MEDS: amLODIPine BESYLATE 5 MG TAB PO SCH (08:16)
[2022-04-27] MEDS: LOSARTAN POTASSIUM 50 MG TAB PO SCH (08:16)
[2022-04-27] MEDS: METOPROLOL SUCC 50MG EXT REL TAB PO SCH (08:16)
[2022-04-27] MEDS: ATORVASTATIN 10 MG TAB PO SCH ×2 (08:16→19:22)
[2022-04-27] MEDS: VESICARE~ORDER AWAITING ACTION SCH ×3 (08:17→23:10)
--- NOTE | 2022-04-27 08:33 | Electrocardiogram Report ---
Test Reason : Blood Pressure : / mmHG Vent. Rate : 089 BPM Atrial Rate : 089 BPM P-R Int : 144 ms QRS Dur : 086 ms QT Int : 392 ms P-R-T Axes : 064 039 031 degrees QTc Int : 476 ms Poor data quality, interpretation may be adversely affected Normal sinus rhythm Normal ECG When compared with ECG of 19-MAR-2022 14:05, Sinus rhythm has replaced Ectopic atrial rhythm Criteria for Inferior infarct are no longer Present Confirmed by Polo Peraza ([id number]) on 04/27/2022 8:33:17 AM Referred By: REFERRED SELF Confirmed By:Polo Peraza
--- NOTE | 2022-04-27 12:11 | Urology Consultation ---
Date of Consultation April 27, 2022 Assessment & Plan (1) Complicated urinary tract infection: (2) BPH (benign prostatic hyperplasia): (3) Urinary retention: 71-year-old male with traumatic bilateral subdural hematoma status post embolization at [facility] in March 2022, BPH, and urinary retention with indwelling Cummins catheter admitted for suspected UTI. Urology consulted for evaluation of urinary retention, chronic Cummins. Patient is afebrile, hemodynamically stable. Lab work reviewedcreatinine 0.82, WBC improved to 17.52, hemoglobin 11.5. Urinalysis on admission suspicious for infection. Urine culture is preliminary showing gram-negative bacilli, blood cultures are pending. He is on IV ceftriaxone. Follow cultures. Continue broad-spectrum antibiotics and narrow per sensitivities when available. Pt has history of BPH and developed urinary retention s/p surgery at [place] in March. He has failed multiple voiding trials. Urinary retention currently managed with indwelling Cummins catheter. Last catheter exchange possibly on 04/06. Patient reports he is scheduled for voiding trial at the [place] on 05/01. Recommend continue with Cummins catheter at present for management of urinary retention. Treat acute infection as above. He is not a good surgical candidate for consideration of a bladder outlet procedure at this time due to recent surgery for subdural hematomas. Favor conservative and medical management of retention with medications and/or continuation of Cummins catheter with monthly changes if he fails outpatient voiding trial. Per notes, he is on Tamsulosin. Has been on Proscar in the past as well as low dose Cialis for BPH. Keep scheduled follow-up with urology at the [place] for voiding trial. Will arrange an outpatient follow-up with our service for further evaluation. will sign off. History of Present Illness Attending Physician: Fabiana Plascencia MD History of Present Illness This is a 71-year-old male with past medical history of CAD s/p CABG, hypertension, hyperlipidemia, traumatic bilateral subdural hematoma status post embolization at [facility] in March 2022, BPH, and urinary retention with indwelling Cummins catheter who presented to the emergency department on 04/26/2022 with generalized weakness, headache symptoms and fever. On arrival, he was afebrile and hemodynamically stable. Lab work independently reviewed. CBC showed leukocytosis of 19.26, hemoglobin 12.4. CBC showed a normal creatinine and electrolytes. Patient had indwelling Cummins catheter on arrival. Urinalysis noted turbid urine, 2+ blood, positive nitrates, 3+ LE, >30 WBC, 10-30 RBC, 4+ bacteria. Urine and blood cultures collected. He was treated with 2 g of IV ceftriaxone. He was admitted to the hospital medicine service for complicated urinary tract infection, bilateral chronic intracranial subdural hematoma. Of note, patient was hospitalized at [facility] from 03/19 to 04/01/2022 for bilateral subdural hematomas. He underwent surgery/embolization. Hospital course complicated by urinary retention managed with Cummins catheter. Per notes he failed voiding trials at [facility]. Urology is consulted for urinary retention, chronic indwelling Cummins. He is known to our service, follows with Dr. Escobar for BPH with LUTS, incontinence, and ED. Chart review: Afebrile, lab work reviewed Creatinine 0.82, WBC 17.52, hemoglobin 11.5. Urine culture prelim gram-negative bacilli. Blood cultures pending. On IV ceftriaxone. Patient seen and examined at bedside this morning. He is awake, alert and sitting up in bedside chair, no apparent distress. He reports feeling much better since arrival. No flank or suprapubic pain. Cummins intact and draining clear concentrated yellow urine. Patient is unsure of last catheter insertion date. Per notes, last catheter insertion possibly on 04/06. Tolerating Cummins catheter. No nausea or vomiting. No fever or chills. He reports he takes Tamsulosin. Reports he is scheduled [facility] for possible voiding trial. Allergies Allergy/AdvReac Type Severity Reaction Status Date / Time No Known Allergies Allergy Verified 04/26/22 17:05 Home Medications Medication Instructions Recorded Confirmed Type amlodipine 5 mg tablet (Norvasc) 5 mg PO QAM 02/20/19 04/26/22 History aspirin 81 mg tablet,delayed 81 mg PO QAM 02/20/19 04/26/22 History release (Adult Aspirin Regimen) metoprolol succinate 50 mg capsule 50 mg PO QAM 02/20/19 04/26/22 History sprinkle, ext. release 24 hr omeprazole 20 mg capsule,delayed 20 mg PO QAM 02/20/19 04/26/22 History release atorvastatin 10 mg tablet (Lipitor) 10 mg PO BID 02/21/19 04/26/22 History losartan 100 mg tablet 100 mg PO QAM 02/21/19 04/26/22 History solifenacin 10 mg tablet 10 mg PO HS 02/21/19 04/26/22 History omega 5-mqn-est-fish oil 1,000 mg 1 cap PO QAM 02/22/19 04/26/22 History (120 mg-180 mg) capsule (Fish Oil) ascorbate calcium (vitamin C) 500 500 mg PO DAILY 04/28/21 04/26/22 History mg tablet cholecalciferol (vitamin D3) 50 50 mcg PO DAILY 04/28/21 04/26/22 History mcg (2,000 unit) capsule tadalafil 5 mg tablet (Cialis) 5 mg PO DAILY #90 tabs 04/28/21 04/26/22 Rx multivitamin 1 tab PO QAM 03/19/22 04/26/22 History Patient History Medical History CAD (coronary artery disease) s/p CABG x 3 (2003) GERD (gastroesophageal reflux disease) Hyperlipidemia Hypertension Obesity Ventral hernia without obstruction or gangrene Surgical History H/O ventral hernia repair (03/13/19) Open Ventral Hernia Repair, with [facility] Dr. 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[employer] Required: No Beliefs That Will Affect Care: None marital status: Current Living Situation: Alone current occupational status: employed and 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 Other Information That Helps Us Care for You: No Feels Safe at Home: Yes Safety Concerns: Feels Safe At This Time Assistive Devices: Cane and Walker Review of Systems Review of Systems: All systems reviewed & are unremarkable except as noted in HPI & below Physical Exam Constitutional: well developed and well nourished; no acute distress Eyes: no scleral abnormality Neck: trachea midline Respiratory: normal respiratory effort; no respiratory distress and no labored breathing Gastrointestinal (Abdomen): Inspection/Auscultation: abdomen normal to inspection; abdomen not distended Musculoskeletal: Head/Neck/Chest: normocephalic and head atraumatic Skin: No rashes noted to exposed skin Neurologic: moves all extremities and awake Psychiatric: Orientation: alert and oriented x 3 Genitourinary: Cummins patent and draining clear concentrated yellow urine Results & Data ([facility]) Vital Signs (Past 12 Hours) Vital Signs Temp Pulse Resp BP Pulse Ox O2 Del Method 04/27/22 07:59 37.0 C 97 H 18 134/74 94 Room Air PG Care Time/CCT Total # of Minutes Spent Total Time Spent with Patient: Total time spent is greater than 50% in coordination of care (as documented) at patient's floor/unit and/or counseling patient: Coding Level of Care Code 39317 INT INP/OBS CARE 1/40MIN Diagnoses Complicated urinary tract infection N39.0 BPH (benign prostatic hyperplasia) N40.0 Urinary retention R33.9
--- NOTE | 2022-04-27 15:29 | Hospitalist Progress Note ---
Date of Service April 27, 2022 Assessment & Plan (1) Catheter-associated urinary tract infection: Plan: Urinary retention History chronic indwelling Cummins catheter secondary to urinary retention/BPH since [facility] confinement last month/failed multiple void trials WBC 19 K on presentation, otherwise does not appear septic WBC 17 K today, remains afebrile On IV ceftriaxone (day 2) Urine culture growing gram-negative bacilli Blood cultures pending Urology recommends maintaining Cummins catheter and keep scheduled follow-up with [place] urology for voiding trial Hx CAD status post CABG Appears stable, no reports of chest pain Continue ASA, statin, beta-britt Hypertension BP controlled, continue metoprolol and losartan History traumatic bilateral subdural hematoma status post surgery/embolization ([facility], 03/2022) Hyperglycemia Mild hyperglycemia noted on admission, Hgb A1c checked and found to be 6.5 Consider starting metformin at discharge DVT PROPHYLAXIS SCDs due to recent subdural hematoma Admission and Anticipated Discharge Date Admission Date: April 26, 2022 Supervising Physician Co-Signing Physician Notes Attending addendum The patient was seen and examined in medical floor He has chronic indwelling Cummins and presented with acute retention and has been on IV antibiotic for UTI Wants to have the Cummins out Denies any significant symptoms On examination Sitting on a chair without any acute distress Hemodynamically stable Chestclear to auscultate bilaterally Abdomenbenign HeartS1, S2 regular Extremitiesno edema His labs and imaging studies reviewed Has UTI with chronic Cummins Has been getting intravenous ceftriaxone Urology has been consulted Agree with assessment and plan as outlined above by Yanci Plascencia Subjective Follow-up for UTI. Patient seen and examined. Sitting up in the chair. Reports feeling much improved compared to yesterday. Denies chest pain and shortness of breath. No abdominal pain or nausea. Patient remains afebrile. Review of Systems Review of Systems: ROS per HPI, all other systems reviewed and negative Physical Exam Constitutional: WD/WN, vitals as above no acute distress Respiratory: normal respiratory effort, lungs clear to auscultation Cardiovascular: Rate/Rhythm: regular rate and regular rhythm Vessels: normal peripheral pulses Extremities: no edema Gastrointestinal (Abdomen): Percussion/Palpation: abdomen soft; abdomen nontender Skin: no rashes, warm and dry Neurologic: no focal motor deficits Psychiatric: A+Ox3, euthymic affect Genitourinary: Cummins in place Results & Data Results & Data ([facility]) Vital Signs (Past 12 Hours) Vital Signs Temp Pulse Resp BP Pulse Ox O2 Del Method 04/27/22 07:59 37.0 C 97 H 18 134/74 94 Room Air Laboratory Results Short CBC 04/26/22 04/27/22 Range/Units 15:29 05:39 WBC 19.26 H 17.52 H (4.8-10.8) K/ul Hgb 12.4 L 11.5 L (14.0-18.0) g/dl Hct 38.0 L 34.2 L (42.0-52.0) % Plt Count 192 172 (130-400) K/uL BMP 04/26/22 04/27/22 15:29 05:39 Sodium 139 137 Potassium 4.5 3.8 Chloride 103 104 Carbon Dioxide 29 27 BUN 15 15 Creatinine 0.92 0.82 Glucose 146 H 129 H Calcium 8.9 8.1 L Liver Function 04/26/22 Range/Units 15:29 Total Bilirubin 0.7 (0.2-1.0) mg/dl AST 12 L (13-39) U/L ALT 14 (7-52) U/L Alkaline Phosphatase 65 (34-104) U/L Albumin 3.8 (3.4-5.0) gm/dl Urine 04/26/22 Range/Units 17:45 Urine Color Dark Yellow Urine Appearance Turbid A (Clear) Urine pH 7.0 (4.5-7.5) Ur Specific [place] 1.022 (1.000-1.030) Urine Protein 1+ H (Negative) Urine Glucose (UA) Negative (Negative)
[2022-04-27] MEDS: cefTRIAXone SODIUM 2,000 MG in DEXTROSE 5% 50 ML IV SCH (19:22)
[2022-04-28 06:38] LABS: Hematocrit (blood only) 34.6 % (42.0-52.0); Hemoglobin 11.3 g/dl (14.0-18.0); Mean Corpuscular Hemoglobin 29.7 pg (25.0-34.0); Mean Corpuscular Hgb Conc 32.7 g/dL (32.0-36.0); Mean Corpuscular Volume 91.1 fL (80.0-100.0); Platelet Count 176 K/uL (130-400); RDW Coefficient of Variation 14.5 % (11.5-14.5); RDW Standard Deviation 47.8 fL (36.4-46.3); White Blood Count 12.84 K/ul (4.8-10.8)
[2022-04-28 06:43] LABS: BUN Creatinine Ratio 23.1 (10-20); Calcium 8.3 mg/dl (8.5-10.1); Creatinine Clr Calc Pharmacy 103.4 ml/min; Est GFR (African American) 103.8 ml/min; Est GFR (Non-African American) 89.6 ml/min; Potassium 4.1 mmol/L (3.5-5.1)
[2022-04-28] MEDS: amLODIPine BESYLATE 5 MG TAB PO SCH (09:46)
[2022-04-28] MEDS: ASPIRIN 81 MG ECTAB PO SCH (09:46)
[2022-04-28] MEDS: CHOLECALCIFEROL 1,000 UNITS 25 MCG TAB PO SCH (09:46)
[2022-04-28] MEDS: ATORVASTATIN 10 MG TAB PO SCH ×2 (09:46→19:37)
[2022-04-28] MEDS: LOSARTAN POTASSIUM 50 MG TAB PO SCH (09:46)
[2022-04-28] MEDS: PANTOprazole 40 MG TAB PO SCH (09:47)
[2022-04-28] MEDS: METOPROLOL SUCC 50MG EXT REL TAB PO SCH (09:47)
[2022-04-28] MEDS: MULTIVITAMIN TAB PO SCH (09:47)
--- NOTE | 2022-04-28 16:52 | Hospitalist Progress Note ---
Date of Service April 28, 2022 Assessment & Plan (1) Catheter-associated urinary tract infection: Plan: Urinary retention History chronic indwelling Cummins catheter secondary to urinary retention/BPH since [facility] confinement last month/failed multiple void trials WBC 19 K on presentation, otherwise does not appear septic WBC 17 K --> 12.8K On IV ceftriaxone (day 3) Urine culture growing pansensitive Klebsiella Blood cultures no growth Urology recommends maintaining Cummins catheter and keep scheduled follow-up with [place] urology for voiding trial however patient requesting inpatient voiding trial today. Cummins catheter removed ~ 1200, bladder scan performed at 1630 showing 220cc. Will keep patient additional day, recheck bladder scan this evening and if > 350, will replace Cummins. Hx CAD status post CABG Appears stable, no reports of chest pain Continue ASA, statin, beta-britt Hypertension BP controlled, continue metoprolol and losartan History traumatic bilateral subdural hematoma status post surgery/embolization ([facility], 03/2022) Hyperglycemia Mild hyperglycemia noted on admission, Hgb A1c checked and found to be 6.5 Consider starting metformin at discharge DVT PROPHYLAXIS SCDs due to recent subdural hematoma Admission and Anticipated Discharge Date Admission Date: April 26, 2022 Supervising Physician Co-Signing Physician Notes Attending addendum: The patient was seen and examined in medical floor He has been feeling much better and does not have any complaints He wants his Cummins out before going home On examination No apparent distress at rest Hemodynamically stable Chestclear to auscultate bilaterally HeartS1, S2 regular Abdomenbenign Extremitiesnegative for any edema His labs and medications reviewed Has complicated UTI with Cummins catheter in situ After removing Cummins he did not make any urine and he will be staying tonight Agree with assessment plan as outlined above by Yanci Plascencia Subjective Follow-up for UTI. Patient seen and examined. Continues to feel well. Remains afebrile. No abdominal pain or nausea. Denies chest pain shortness of breath. Patient requesting voiding trial prior to discharge. Review of Systems Review of Systems: ROS per HPI, all other systems reviewed and negative Physical Exam Constitutional: WD/WN, vitals as above Respiratory: normal respiratory effort, lungs clear to auscultation Cardiovascular: Rate/Rhythm: regular rate and regular rhythm Vessels: normal peripheral pulses Extremities: no edema Gastrointestinal (Abdomen): Percussion/Palpation: abdomen soft; abdomen nontender Skin: no rashes, warm and dry Neurologic: no focal motor deficits Psychiatric: A+Ox3, euthymic affect Genitourinary: Cummins in place Results & Data Results & Data ([facility]) Vital Signs (Past 12 Hours) Vital Signs Temp Pulse Resp BP Pulse Ox O2 Del Method 04/28/22 15:31 36.7 C 62 18 136/70 97 Room Air 04/28/22 07:44 37.1 C 82 18 139/84 95 Room Air Laboratory Results Short CBC 04/28/22 Range/Units 05:48 WBC 12.84 H (4.8-10.8) K/ul Hgb 11.3 L (14.0-18.0) g/dl Hct 34.6 L (42.0-52.0) % Plt Count 176 (130-400) K/uL BMP 04/28/22 05:48 Sodium 138 Potassium 4.1 Chloride 104 Carbon Dioxide 29 BUN 18 Creatinine 0.78 Glucose 117 H Calcium 8.3 L
[2022-04-28] MEDS: cefTRIAXone SODIUM 2,000 MG in DEXTROSE 5% 50 ML IV SCH (19:42)
[2022-04-29 06:13] LABS: Hematocrit (blood only) 35.1 % (42.0-52.0); Hemoglobin 11.6 g/dl (14.0-18.0); Mean Corpuscular Hemoglobin 29.6 pg (25.0-34.0); Mean Corpuscular Volume 89.5 fL (80.0-100.0); Mean Platelet Volume 10.8 fL (9.4-12.4); Platelet Count 192 K/uL (130-400); RDW Coefficient of Variation 14.3 % (11.5-14.5); Red Blood Count 3.92 M/uL (4.70-6.10); White Blood Count 7.65 K/ul (4.8-10.8)
[2022-04-29 07:16] LABS: BUN Creatinine Ratio 19.5 (10-20); Calcium 8.4 mg/dl (8.5-10.1); Creatinine Clr Calc Pharmacy 98.3 ml/min; Est GFR (African American) 101.7 ml/min; Est GFR (Non-African American) 87.7 ml/min; Potassium 4.4 mmol/L (3.5-5.1)
[2022-04-29] MEDS: amLODIPine BESYLATE 5 MG TAB PO SCH (08:52)
[2022-04-29] MEDS: ATORVASTATIN 10 MG TAB PO SCH (08:52)
[2022-04-29] MEDS: METOPROLOL SUCC 50MG EXT REL TAB PO SCH (08:52)
[2022-04-29] MEDS: PANTOprazole 40 MG TAB PO SCH (08:52)
[2022-04-29] MEDS: MULTIVITAMIN TAB PO SCH (08:52)
[2022-04-29] MEDS: LOSARTAN POTASSIUM 50 MG TAB PO SCH (08:53)
[2022-04-29] MEDS: ASPIRIN 81 MG ECTAB PO SCH (08:53)
[2022-04-29] MEDS: CHOLECALCIFEROL 1,000 UNITS 25 MCG TAB PO SCH (08:53)
[2022-04-29] MEDS: VESICARE~ORDER AWAITING ACTION SCH (08:56)
[2022-04-29] MEDS ORDERED: TAMSULOSIN HCL 0.4 MG CAP PO SCH (09:00)
[2022-04-29] MEDS ORDERED: PHENAZOPYRIDINE HCL 200 MG TAB PO PRN (10:48)
[2022-04-29] MEDS ORDERED: LIDOCAINE 2% JELLY 5 ML TUBE EXT PRN (10:48)
--- NOTE | 2022-04-29 10:53 | Urology Progress Note ---
Date of Service April 29, 2022 Assessment & Plan (1) Urinary retention: (2) Complicated urinary tract infection: Plan: - Urology follow-up of urinary retention, Cummins placement. - Patient failed voiding trial yesterday. Elevated PVRs. - He was unable to tolerate Cummins replacement yesterday by nursing. Straight cath x 2 by nursing. - 18 F coude catheter was placed successfully, patient tolerated procedure. - Maintain Cummins catheter until follow-up with Urology. - Ordered prn Pyridium and prn Lidocaine jelly for symptom management. - Urine culture 04/26 grew out Klebsiella - continue antibiotics. BCx no growth x 48 hours. - Can transition to appropriate PO antibiotics upon discharge- recommend total of 10 days of antibiotics. - Continue supportive care. - will sign off. Admission and Anticipated Discharge Date Admission Date: April 26, 2022 [facility] medicine service asked urology to revisit patient for Cummins catheter placement. Voiding trial performed yesterday. Patient was unable to void after removal. Elevated PVRs 400-500s. Catheter unable to be placed by nursing. Straight cath x2. Patient awake and resting comfortably in bedside chair. He reports he experienced significant discomfort when Cummins catheter balloon was inflated during attempts yesterday. He has been dribbling urine but unable to void. Denies abdominal or suprapubic discomfort at this time no nausea or vomiting. No fever or chills. Review of Systems Constitutional: as per Subjective / HPI Gastrointestinal: as per Subjective / HPI Genitourinary: + as per Subjective / HPI Physical Exam Constitutional: well developed and well nourished; no acute distress Respiratory: normal respiratory effort; no respiratory distress and no labored breathing Cardiovascular: Extremities: no pedal edema Gastrointestinal (Abdomen): Inspection/Auscultation: abdomen normal to inspection; abdomen not distended Musculoskeletal: Head/Neck/Chest: normocephalic Psychiatric: Orientation: alert and oriented x 3 Genitourinary: Using sterile technique, patient was prepped and draped. An 18 [place] coud catheter was inserted without difficulty with immediate return of clear yellow urine. Balloon was inflated to 10 mL. Patient tolerated procedure well. Results & Data ([facility]) Vital Signs (Past 12 Hours) Vital Signs Temp Pulse Resp BP Pulse Ox O2 Del Method 04/29/22 08:50 83 136/82 04/29/22 07:35 37.0 C 77 18 131/79 95 Room Air 04/28/22 23:03 36.9 C 71 18 130/73 96 Room Air PG Care Time/CCT Total # of Minutes Spent Total Time Spent with Patient: Total time spent is greater than 50% in coordination of care (as documented) at patient's floor/unit and/or counseling patient: Coding Level of Care Code 49957 SUB INP/OBS CARE 04/08MIN Diagnoses Urinary retention R33.9 Complicated urinary tract infection N39.0
--- NOTE | 2022-04-29 16:24 | Discharge Summary ---
Date of Service April 29, 2022 Admission HPI Per Admitting Provider History obtained from patient, family, and records. Medical history significant for CAD status post CABG, hypertension, hyperlipidemia, history traumatic bilateral subdural hematoma status post surgery/embolization ([facility], 03/[place]), chronic anemia (baseline hemoglobin of 12 ), urinary retention secondary to BPH with indwelling Cummins catheter (since 03/2022 [facility] confinement), past tobacco abuse. Last confinement [facility] March 19 to 2022 following [facility] transfer for bilateral subdural hematomas with shift following history of recurrent falls. Patient underwent for holding and embolization. Patient subsequently discharged to [facility] rehab facility. Patient subsequently discharged home weeks ago. Cummins catheter placed during [facility] confinement with failed void trials at [facility] and [facility] rehab facility as per records. Patient discharged home indwelling Cummins catheter with instructions to follow-up with local urologist. Patient woke up not feeling well this morning. Fever of 101. Generalized weakness with transient left-sided headache symptoms. No chest pain, no SOB. Nonproductive cough symptoms. No abdominal pain, no diarrhea, no dysuria complaints. Patient brought to ER for evaluation. IV ceftriaxone administered at the ER for UTI. Medical History as above Surgical History : CABG, ventral hernia repair, dental surgery, james holing Family History : DM, heart disease Personal/Social history : Past tobacco abuse, occasional EtOH intake, lives with Admission Exam Per Admitting Provider GENERAL: Comfortable, pleasant, obese, no respiratory distress SKIN: Normal color, warm HEENT: Partial alopecia, pink palpebral conjunctivae, no ptosis, dry buccal m ucosa NECK : Supple, no tenderness CHEST : CTA, no tenderness HEART : RRR, no obvious murmurs ABDOMEN: Some distention, nontender EXTREMITIES : Minimal RLE swelling (chronic as per patient ), no LE swelling/tenderness, no other conspicuous deformities noted NEUROLOGIC : Coherent, no facial asymmetry, gait and stance not assessed Principal Diagnosis Catheter associated UTI Discharge Exam Constitutional WD/WN, vitals as above Respiratory normal respiratory effort, lungs clear to auscultation Cardiovascular Rate/Rhythm: regular rate and regular rhythm Vessels: normal peripheral pulses Extremities: no edema Gastrointestinal (Abdomen) Percussion/Palpation: abdomen soft; abdomen nontender Skin no rashes, warm and dry Neurologic no focal motor deficits Psychiatric A+Ox3, euthymic affect Discharge Data Allergies Allergy/AdvReac Type Severity Reaction Status Date / Time No Known Allergies Allergy Verified 04/26/22 17:05 Consultations 04/26/22 21:52 Consult Urology Routine Ordered Studies Laboratory Results WBC 7.65 K/ul (4.8-10.8) 04/29/22 05:55 RBC 3.92 M/uL (4.70-6.10) L 04/29/22 05:55 Hgb 11.6 g/dl (14.0-18.0) L 04/29/22 05:55 Hct 35.1 % (42.0-52.0) L 04/29/22 05:55 MCV 89.5 fL (80.0-100.0) 04/29/22 05:55 MCH 29.6 pg (25.0-34.0) 04/29/22 05:55 MCHC 33.0 g/dL (32.0-36.0) 04/29/22 05:55 RDW Std Deviation 46.0 fL (36.4-46.3) 04/29/22 05:55 RDW Coeff of Judah 14.3 % (11.5-14.5) 04/29/22 05:55 Plt Count 192 K/uL (130-400) 04/29/22 05:55 MPV 10.8 fL (9.4-12.4) 04/29/22 05:55 Immature Gran % (Auto) 0.7 % 04/27/22 05:39 Neut % (Auto) 82.6 % 04/27/22 05:39 Lymph % (Auto) 7.0 % 04/27/22 05:39 [place] % (Auto) 9.6 % 04/27/22 05:39 Eos % (Auto) 0.0 % 04/27/22 05:39 Baso % (Auto) 0.1 % 04/27/22 05:39 Neut # (Auto) 14.47 K/uL (1.40-6.50) H 04/27/22 05:39 Lymph # (Auto) 1.22 K/uL (1.2-3.4) 04/27/22 05:39 [place] # (Auto) 1.69 K/uL (0.11-0.59) H 04/27/22 05:39 Eos # (Auto) 0.00 K/uL (0-0.50) 04/27/22 05:39 Baso # (Auto) 0.02 K/uL (0-0.2) 04/27/22 05:39 Immature Gran # (Auto) 0.12 K/uL (0.01-0.20) 04/27/22 05:39 Sodium 138 mmol/L (136-145) 04/29/22 05:55 Potassium 4.4 mmol/L (3.5-5.1) 04/29/22 05:55 Chloride 104 mmol/L (98-107) 04/29/22 05:55 Carbon Dioxide 30 mmol/L (21-32) 04/29/22 05:55 Anion Gap 4 (3-11) 04/29/22 05:55 BUN 16 mg/dl (6-23) 04/29/22 05:55 Creatinine 0.82 mg/dl (0.6-1.4) 04/29/22 05:55 Est Cr Clr Drug Dosing 98.3 ml/min 04/29/22 05:55 Est GFR ( Amer) 101.7 ml/min 04/29/22 05:55 Est GFR (Non-Af Amer) 87.7 ml/min 04/29/22 05:55 BUN/Creatinine Ratio 19.5 (10-20) 04/29/22 05:55 Glucose 120 mg/dl (70-99(Fasting)) H 04/29/22 05:55 Estimat Average Glucose 140 mg/dl 04/26/22 15:29 Hemoglobin A1c 6.5 % (4.5-5.6) H 04/26/22 15:29 Calcium 8.4 mg/dl (8.5-10.1) L 04/29/22 05:55 Magnesium 1.9 mg/dl (1.7-2.4) 04/27/22 05:39 Total Bilirubin 0.7 mg/dl (0.2-1.0) 04/26/22 15:29 AST 12 U/L (13-39) L 04/26/22 15:29 ALT 14 U/L (7-52) 04/26/22 15:29 Alkaline Phosphatase 65 U/L (34-104) 04/26/22 15:29 Troponin I High Sens 8.4 pg/ml (0-20) 04/26/22 15:29 Total Protein 6.9 gm/dl (6.0-8.3) 04/26/22 15: Albumin 3.8 gm/dl (3.4-5.0) 04/26/22 15: Globulin 3.1 gm/dl (2.5-4.0) 04/26/22 15: Albumin/Globulin Ratio 1.2 (0.9-2) 04/26/22 15: Procalcitonin 0.36 ng/ml (0-0.5) 04/26/22 15: TSH 0.523 uIu/ml (0.300-4.500) 04/26/22 15: Urine Color Dark Yellow 04/26/22 17:45 Urine Appearance Turbid (Clear) A 04/26/22 17:45 Urine pH 7.0 (4.5-7.5) 04/26/22 17:45 Ur Specific [place] 1.022 (1.000-1.030) 04/26/22 17:45 Urine Protein 1+ (Negative) H 04/26/22 17:45 Urine Glucose (UA) Negative (Negative) 04/26/22 17:45 Urine Ketones Trace (Negative) H 04/26/22 17:45 Urine Blood 2+ (Negative) H 04/26/22 17:45 Urine Nitrite Positive (Negative) A 04/26/22 17:45 Urine Bilirubin Negative (Negative) 04/26/22 17:45 Urine Urobilinogen Negative (Negative) 04/26/22 17:45 Ur Leukocyte Esterase 3+ (Negative) H 04/26/22 17:45 Urine WBC (Auto) >30 /hpf (0-5) H 04/26/22 17:45 Urine RBC (Auto) 10-30 /hpf (0-4) H 04/26/22 17:45 U Hyaline Cast (Auto) 5-10 /lpf (0-5) H 04/26/22 17:45 U Epithel Cells (Auto) 5-10 /lpf (0-5) H 04/26/22 17:45 Urine Bacteria (Auto) 4+ (Negative) H 04/26/22 17:45 Adenovirus (PCR) Not Detected (NotDetected) 04/26/22 15:25 B. pertussis DNA (PCR) Not Detected (NotDetected) 04/26/22 15:25 B.parapertussis DNA PCR Not Detected (NotDetected) 04/26/22 15:25 C. pneumoniae DNA (PCR) Not Detected (NotDetected) 04/26/22 15:25 Coronavirus OC43 (PCR) Not Detected (NotDetected) 04/26/22 15:25 Coronavirus HKU1 (PCR) Not Detected (NotDetected) 04/26/22 15:25 Coronavirus 229E (PCR) Not Detected (NotDetected) 04/26/22 15:25 SARS-CoV-2 (PCR) Not Detected (NotDetected) 04/26/22 15:25 Coronavirus NL63 (PCR) Not Detected (NotDetected) 04/26/22 15:25 Human Metapneumovir PCR Not Detected (NotDetected) 04/26/22 15:25 Influenza Type A (PCR) Not Detected (NotDetected) 04/26/22 15:25 Influenza Type B (PCR) Not Detected (NotDetected) 04/26/22 15:25 M. pneumoniae (PCR) Not Detected (NotDetected) 04/26/22 15:25 Parainfluenza 1 (PCR) Not Detected (NotDetected) 04/26/22 15:25 Parainfluenza 2 (PCR) Not Detected (NotDetected) 04/26/22 15:25 Parainfluenza 3 (PCR) Not Detected (NotDetected) 04/26/22 15:25 Parainfluenza 4 (PCR) Not Detected (NotDetected) 04/26/22 15:25 RSV (PCR) Not Detected (NotDetected) 04/26/22 15:25 Entero/Rhino (PCR) Not Detected (NotDetected) 04/26/22 15:25 Impressions Chest X-Ray 04/26/22 15:24 XR chest 1V portable CLINICAL HISTORY: weakness COMPARISON STUDY: Chest radiograph March 19, 2022. FINDINGS: No pneumothorax is noted. Blunting of the left costophrenic angle is likely chronic. Mild asymmetric left lung volume loss is unchanged. This may be postsurgical. There are median sternotomy wires and mediastinal surgical clips. Cardiomegaly is noted. No evidence for pulmonary edema. No definite consolidation. Hazy left basilar opacity is likely artifactual. IMPRESSION: No acute cardiopulmonary findings. No change in appearance of the chest. ACT 112: Negative or not required by law. Electronically signed by: Deven Cuellar M.D. 04/26/2022 4:[address] 04/26/22 15:24 CT OF THE HEAD WITHOUT CONTRAST CLINICAL HISTORY: weakness COMPARISON STUDY: Head CT and CTA of the head March 19, 2022. CT DOSE: 614.27 mGy.cm TECHNIQUE: Helical axial images of the head were obtained without IV contrast. Automated exposure control was utilized for the study. A dose lowering technique was utilized adhering to the principles of ALARA. FINDINGS: Moderate-sized left and small right-sided mixed attenuation subdural hematomas are noted. These have decreased in size and attenuation when compared to prior head CT of March 19, 2022 following interval bilateral craniotomies. The left subdural hematoma measures 1.7 cm in thickness. The right sided hematoma measures 1.2 cm. Mass effect has diminished. There is mild residual sulcal effacement. There is no significant midline shift. Compression of the left lateral ventricle has diminished. The basal cisterns are patent. There is no evidence for herniation at this time. No findings to suggest acute dural sinus thrombosis or acute territorial infarct. Surgical material along the inner table of the right calvarium is noted. No acute calvarial fracture is present. IMPRESSION: Bilateral mixed attenuation subdural hematomas, decreased in size since head CT of March 19, 2022 following interval craniotomies. Left subdural hematoma moderate in size. Right hematoma small in size. Correlation with prior postoperative imaging studies would be beneficial. These may reflect recurrent acute on chronic or subacute subdural hematomas. Short-term imaging follow-up is recommended with follow-up head CT in 12 hours to ensure stability. If progressive symptoms, neurosurgical consultation is recommended. ACT 112: Negative or not required by law. Electronically signed by: Deven Cuellar M.D. 04/26/2022 4:20 PM Diabetes Follow up Diabetes Follow-up Needed for Newly Diagnosed Diabetes Hospital Course (1) Catheter-associated urinary tract infection: Urinary retention History chronic indwelling Cummins catheter secondary to urinary retention/BPH since [facility] confinement last month/failed multiple void trials WBC 19 K on presentation, otherwise did not appear septic. WBC improved to 7.6K on the day of discharge. Urine culture growing pansensitive Klebsiella Blood cultures no growth Received IV ceftriaxone, will discharge on cephalexin to complete a 10-day course. Per patient request, voiding trial was attempted however patient was unable to urinate. Cummins catheter replaced on 04/29 by urology. Patient to follow-up with [facility] urology. Hyperglycemia Mild hyperglycemia noted on admission, Hgb A1c checked and found to be 6.5 Follow-up with PCP Hx CAD status post CABG Appears stable, no reports of chest pain Continue ASA, statin, beta-britt Hypertension BP controlled, continue metoprolol and losartan History traumatic bilateral subdural hematoma status post surgery/embolization ([facility], 03/2022) Total Time Total Time Spent Total Time Spent (In Minutes): 35 Discharge Plan Discharge Items Patient Disposition: Home - Self-Care Reason For Visit: Fever, Weakness Discharge Diagnosis: Urinary tract infection Activity: Resume your previous activity Non-emergency contact: Primary Care Provider and Urologist Call non-emergency contact if: you have any medication questions, your symptoms worsen, your pain is not controlled and you have a fever Follow-up/Referrals: [facility] Urology [Provider Group] - 05/26/22 9:00 am Davie Robertson DO [Primary Care Provider] - (Schedule follow-up with PCP within 1 week) Diet: Heart Healthy Addtl Attending Provider Instructions: You came to the hospital for evaluation of fever and generalized weakness. You were found to have a urinary tract infection. Initially treated with IV antibiotics, you will be discharged on cephalexin (Keflex) 500 mg 4 times daily for the next 7 days. Cummins catheter removal was attempted however you were not able to urinate. Cummins catheter was replaced. Please schedule follow-up appointment with your PCP at the [facility] within the next 1 week. [facility] urology office will be reaching out to schedule your follow up appt. You may cancel your appt with [facility] urology for this Wednesday. You may take Pyridium as needed for bladder spasm/discomfort. You may also use lidocaine jelly at catheter insertion site for discomfort. Note that if you take Pyridium it may turn your urine orange. It was a pleasure taking care of you. If you need to reach a member of the [facility] hospitalist team at [facility], please call [phone]. TESSA Ruth Pending Studies at Discharge: No Stand-Alone Forms: [facility], Smoking Cessation Medications and DC Order Prescriptions: New phenazopyridine [Pyridium] 200 mg Tablet 200 mg PO TID PRN (Reason: bladder spasms) Qty: 14 0RF lidocaine HCl 2 % Jelly 1 ml EXT BID PRN (Reason: catheter pain) Qty: 30 0RF cephalexin 500 mg capsule 500 mg PO QID 7 Days Qty: 28 0RF Continued amlodipine [Norvasc] 5 mg tablet 5 mg PO QAM aspirin [Adult Aspirin Regimen] 81 mg tablet,delayed release (DR/EC) 81 mg PO QAM metoprolol succinate 50 mg capsule,sprinkle,ER 24hr 50 mg PO QAM omeprazole 20 mg capsule,delayed release(DR/EC) 20 mg PO QAM atorvastatin [Lipitor] 10 mg tablet 10 mg PO BID losartan 100 mg tablet 100 mg PO QAM solifenacin 10 mg tablet 10 mg PO HS ascorbate calcium (vitamin C) 500 mg tablet 500 mg PO DAILY cholecalciferol (vitamin D3) 50 mcg (2,000 unit) capsule 50 mcg PO DAILY tadalafil [Cialis] 5 mg tablet 5 mg PO DAILY Qty: 90 3RF omega [id number] oil [Fish Oil] 1,000 mg (120 mg-180 mg) Capsule 1 cap PO QAM multivitamin Tablet 1 tab PO QAM tamsulosin 0.4 mg Capsule 0.4 mg PO BID Discharge Orders: Discharge Order (Routine); Ordered 04/29/22 Ordered By: Yanci Killian/Other Patient Handouts: Phenazopyridine Oral Tablet, Indwelling Urinary Catheter Dc, Leg Bag Care Dc Admission Data Admit Date/Time: 04/26/22 20:20 Attending Provider: Fabiana Plascencia Admit Provider: Fredy Chan Primary Care Provider: Davie Robertson Other Providers: Fredy Chan ; Olman Henriquez ; Andrey Soriano ; Renato Hinson ; Yanci Harmon ; Jose Gaviria ; Emilia Olivares ; Anna Arteaga ; Sudheer Escobar ; Roberto Crow ; Diana Ramon ; Bobo Fritz ; Peter Tavarez Other Interventions: Discharge Summary Assessment (RN) Last Done: 04/29/22 12:38 Supervising Physician Co-Signing Physician Notes Attending addendum: The patient was seen and examined in medical floor He has to have catheter placed back again Denies any fever and or chills, no nausea no vomiting On examination Lying in bed without any acute distress Hemodynamically stable Chestclear to auscultate bilaterally HeartS1, S2 regular Abdomenbenign Extremitiesno edema His labs and medications reviewed Has complicated UTI with Cummins catheter in situ Will be discharged home on oral antibiotic Agree with assessment and plan as outlined above by Yanci Plascencia
--- NOTE | 2022-04-30 09:30 | Coding Query ---
To promote full compliance with coding requirements relating to patient care, provider participation is requested in all cases of boarder machine uncertainty. Please assist us with the question(s) below: Coding Question(s): The diagnosis(es) below was documented in the H&P then subsequently fell off all further documentation. Please indicate if it is still a possible diagnosis or ruled out. Physician's Response(s): Catheter associated UTI is the diagnosis.No Sepsis SEPSIS ( ) Diagnosed and POA ( ) Diagnosed and not POA ( ) Ruled out ( + ) Other (please specify) MTDD
== END 2022-04-29 14:46 | disposition home or self-care (01) ==
LOC: ED 14:49 → 3E 20:20 → SUATTDRO 20:20 → INTOOBSV 20:20 → 3E 21:15